=== PATIENT | female | born 1990 | race Caucasian/White ===

== ENCOUNTER 2020-10-19 15:18 | Emergency (ER) | payer OTHER ==
[~2020-10-19] VITALS: Ht 177.8 cm; Wt 65.9 kg
[2020-10-19 16:50] LABS: BASOPHILS % (AUTO) 0.6 % (0.0-2.0); EOSINOPHILS % (AUTO) 0.6 % (1.0-6.0); HEMATOCRIT 43.6 % (36-46); HEMOGLOBIN 14.8 g/dL (12.0-16.0); LYMPHOCYTES # (AUTO) 2.8 K/uL (1.0-4.8); LYMPHOCYTES % (AUTO) 29.6 % (22.0-44.0); MEAN CORPUSCULAR HGB CONC 33.9 G/dL (31.0-37.0); MEAN CORPUSCULAR VOLUME 92 fL (80-100); MONOCYTES # (AUTO) 0.6 K/uL (0.1-1.0); MONOCYTES % (AUTO) 6.7 % (2.0-9.0); NEUTROPHILS # (AUTO) 5.9 K/uL (1.8-7.7); NEUTROPHILS % (AUTO) 62.5 % (40.0-70.0); PLATELET COUNT (AUTO) 202 K/uL (150-450); RED BLOOD CELL COUNT(AUTO) 4.75 MIL/uL (4.00-5.20); RED CELL DISTRIBUTION WIDTH 13.1 % (11.5-14.5)
[2020-10-19 17:05] LABS: ANION GAP 12 mmol/L (8-16); CARBON DIOXIDE 26 mmol/L (22-29); CHLORIDE 105 mmol/L (98-107); CREATININE 0.64 mg/dL (0.60-1.30); GLOMERULAR FILTR. RATE CALC > 60 mL/min (>60); GLUCOSE,RANDOM 90 mg/dL (70-110); POTASSIUM 4.3 mmol/L (3.5-5.1); SODIUM SERUM 143 mmol/L (136-145); UREA NITROGEN, BLOOD 10 mg/dL (7-18)
[2020-10-19 17:16] LABS: ALANINE AMINOTRANSFERASE 22 U/L (12-78); ALBUMIN 4.2 g/dL (3.4-5.0); ALKALINE PHOSPHATASE 46 U/L (46-116); ASPARTATE AMINOTRANSFERASE 11 U/L (15-37); BILIRUBIN,TOTAL 0.3 mg/dL (0.1-1.0); HCG,QUANTITATIVE < 1 mIU/mL (0-6); TOTAL PROTEIN, SERUM 7.2 g/dL (6.4-8.2)
[2020-10-19 17:24] LABS: APPEARANCE,URINE CLOUDY (CLEAR); BILIRUBIN,URINE NEGATIVE (NEGATIVE); GLUCOSE, URINE (UA) NEGATIVE (NEGATIVE); KETONES,URINE NEGATIVE (NEGATIVE); LEUKOCYTE ESTERASE ,URINE NEGATIVE (NEGATIVE); NITRATE,URINE NEGATIVE (NEGATIVE); OCCULT BLOOD,URINE NEGATIVE (NEGATIVE); PH,URINE 7.5 (5.0-8.0); PROTEIN,URINE NEGATIVE (NEGATIVE); UROBILINOGEN,URINE 0.2 mg/dL (<=1.0)
[2020-10-19 18:29] LABS: BACTERIA,URINE None Seen /HPF (None Seen); RBC,URINE None Seen /HPF (0-2); WBC,URINE None Seen /HPF (0-5)
[2020-10-19 18:30] LABS: SQUAMOUS EPITHELIAL CELL,UR Few /LPF (None Seen)
[2020-10-19 19:00] VITALS: BP 126/71
== END 2020-10-19 19:00 | disposition home or self-care (01) ==
LOC: EMS 15:21
DX: G62.9 Polyneuropathy, unspecified (principal); R10.32 Left lower quadrant pain; R42 Dizziness and giddiness; F17.210 Nicotine dependence, cigarettes, uncomplicated; F12.90 Cannabis use, unspecified, uncomplicated
CPT/HCPCS: 74176; 80053; 81001; 84702; 85025; 99284

== ENCOUNTER 2021-09-11 02:17 | Emergency (ER) | payer OTHER ==
[~2021-09-11] VITALS: Ht 175.3 cm; Wt 70.5 kg
[2021-09-11 02:28] VITALS: BP 132/82
[2021-09-11 03:07] LABS: BASOPHILS % (AUTO) 0.8 % (0.0-2.0); EOSINOPHILS % (AUTO) 1.4 % (1.0-6.0); HEMATOCRIT 40.5 % (36-46); HEMOGLOBIN 13.8 g/dL (12.0-16.0); LYMPHOCYTES # (AUTO) 3.4 K/uL (1.0-4.8); MEAN CORPUSCULAR HEMOGLOBIN 30.8 pg (26.0-34.0); MEAN CORPUSCULAR VOLUME 91 fL (80-100); MONOCYTES # (AUTO) 0.7 K/uL (0.1-1.0); MONOCYTES % (AUTO) 7.1 % (2.0-9.0); NEUTROPHILS # (AUTO) 5.2 K/uL (1.8-7.7); NEUTROPHILS % (AUTO) 54.7 % (40.0-70.0); PLATELET COUNT (AUTO) 182 K/uL (150-450); RED BLOOD CELL COUNT(AUTO) 4.48 MIL/uL (4.00-5.20); RED CELL DISTRIBUTION WIDTH 13.2 % (11.5-14.5)
[2021-09-11 03:14] LABS: ANION GAP 9 mmol/L (8-16); CALCIUM, TOTAL 8.6 mg/dL (8.8-10.5); CARBON DIOXIDE 24 mmol/L (22-29); CHLORIDE 104 mmol/L (98-107); GLUCOSE,RANDOM 101 mg/dL (70-110); SODIUM SERUM 137 mmol/L (136-145); UREA NITROGEN, BLOOD 15 mg/dL (7-18)
[2021-09-11] MEDS ORDERED: ACETAMINOPHEN 500 MG TABLET PO ONE (03:15)
[2021-09-11] MEDS ORDERED: MAG HYDROX/AL HYDROX/SIMETH 30 ML SUSP UDCUP PO ONE (03:15)
[2021-09-11] MEDS ORDERED: FAMOTIDINE 20 MG TABLET PO ONE (03:15)
[2021-09-11 03:17] LABS: GLOMERULAR FILTR. RATE CALC > 60 mL/min (>60)
[2021-09-11 03:34] LABS: B-TYPE NATRIURETIC PEPTIDE 18 pg/mL (0-100)
[2021-09-11 03:35] LABS: ALANINE AMINOTRANSFERASE 19 U/L (12-78); ALBUMIN 3.8 g/dL (3.4-5.0); ALKALINE PHOSPHATASE 45 U/L (46-116); ASPARTATE AMINOTRANSFERASE 12 U/L (15-37); BILIRUBIN,TOTAL 0.5 mg/dL (0.1-1.0); CREATINE KINASE, TOTAL ONLY 47 U/L (26-192); HCG,QUANTITATIVE < 1 mIU/mL (0-6); TOTAL PROTEIN, SERUM 6.8 g/dL (6.4-8.2)
== END 2021-09-11 05:49 | disposition home or self-care (01) ==
LOC: EMS 02:18
DX: R07.89 Other chest pain (principal); F12.90 Cannabis use, unspecified, uncomplicated; F17.210 Nicotine dependence, cigarettes, uncomplicated
CPT/HCPCS: 71045; 80053; 82550; 83880; 84484; 84702; 85025; 93005; 99285; 36415-L1; 36415-TC

== ENCOUNTER 2022-11-16 19:52 | Emergency (ER) | payer OTHER ==
[~2022-11-16] VITALS: Ht 175.3 cm; Wt 70.5 kg
[2022-11-16 20:23] VITALS: BP 128/70; PULSE 65; RESP 12; TEMP 98.7
[2022-11-16 21:32] LABS: APPEARANCE,URINE CLEAR (CLEAR); BILIRUBIN,URINE NEGATIVE (NEGATIVE); COLOR,URINE LIGHT YELLOW (YELLOW); GLUCOSE, URINE (UA) NEGATIVE (NEGATIVE); KETONES,URINE NEGATIVE (NEGATIVE); LEUKOCYTE ESTERASE ,URINE NEGATIVE (NEGATIVE); NITRATE,URINE NEGATIVE (NEGATIVE); OCCULT BLOOD,URINE NEGATIVE (NEGATIVE); PH,URINE 5.5 (5.0-8.0); PROTEIN,URINE NEGATIVE (NEGATIVE); SPECIFIC GRAVITIY, URINE 1.012 (1.003-1.030); UROBILINOGEN,URINE <=1.0 mg/dL (<=1.0)
[2022-11-16 21:37] LABS: BASOPHILS % (AUTO) 0.7 % (0.0-2.0); EOSINOPHILS % (AUTO) 1.7 % (1.0-6.0); HEMATOCRIT 41.3 % (36-46); LYMPHOCYTES # (AUTO) 2.5 K/uL (1.0-4.8); LYMPHOCYTES % (AUTO) 31.1 % (22.0-44.0); MEAN CORPUSCULAR HEMOGLOBIN 31.5 pg (26.0-34.0); MEAN CORPUSCULAR VOLUME 93 fL (80-100); MONOCYTES # (AUTO) 0.5 K/uL (0.1-1.0); MONOCYTES % (AUTO) 6.9 % (2.0-9.0); NEUTROPHILS # (AUTO) 4.7 K/uL (1.8-7.7); NEUTROPHILS % (AUTO) 59.6 % (40.0-70.0); PLATELET COUNT (AUTO) 191 K/uL (150-450); RED BLOOD CELL COUNT(AUTO) 4.46 MIL/uL (4.00-5.20); RED CELL DISTRIBUTION WIDTH 13.3 % (11.5-14.5); WHITE BLOOD COUNT (AUTO) 7.9 K/uL (4.5-11.0)
[2022-11-16 21:39] LABS: BACTERIA,URINE None Seen /HPF (None Seen); RBC,URINE 0-2 /HPF (0-2); SQUAMOUS EPITHELIAL CELL,UR Few /LPF (None Seen); WBC,URINE 0-2 /HPF (0-5)
[2022-11-16 21:46] LABS: ANION GAP 9 mmol/L (8-16); CALCIUM, TOTAL 8.7 mg/dL (8.8-10.5); CARBON DIOXIDE 24 mmol/L (22-29); CHLORIDE 103 mmol/L (98-107); CREATININE 0.65 mg/dL (0.60-1.30); GLOMERULAR FILTR. RATE CALC > 60 mL/min (>60); GLUCOSE,RANDOM 101 mg/dL (70-110); POTASSIUM 3.5 mmol/L (3.5-5.1); SODIUM SERUM 136 mmol/L (136-145); UREA NITROGEN, BLOOD 10 mg/dL (7-18)
[2022-11-16 21:52] LABS: ALANINE AMINOTRANSFERASE 8 U/L (12-78); ALBUMIN 3.7 g/dL (3.4-5.0); ALKALINE PHOSPHATASE 54 U/L (46-116); ASPARTATE AMINOTRANSFERASE 11 U/L (15-37); BILIRUBIN,TOTAL 0.3 mg/dL (0.1-1.0); LIPASE 39 U/L (16-77); TOTAL PROTEIN, SERUM 6.8 g/dL (6.4-8.2)
[2022-11-16] MEDS ORDERED: SULF-261 PO (23:17)
== END 2022-11-16 23:25 | disposition home or self-care (01) ==
LOC: EMS 19:53
DX: R30.0 Dysuria (principal); G40.909 Epilepsy, unspecified, not intractable, without status epilepticus; F17.210 Nicotine dependence, cigarettes, uncomplicated; F12.90 Cannabis use, unspecified, uncomplicated; Z98.890 Other specified postprocedural states; Z90.89 Acquired absence of other organs
CPT/HCPCS: 80053; 81001; 83690; 84703; 85025; 99283

== ENCOUNTER 2023-03-12 18:45 | Emergency (ER) | payer OTHER ==
[~2023-03-12] VITALS: Ht 175.3 cm; Wt 72.7 kg
[~2023-03-12 18:45] MED LIST: SULF-261 PO
[2023-03-12 18:48] VITALS: BP 129/74; PULSE 71; RESP 16; TEMP 98.3
[2023-03-12] MEDS ORDERED: PROPARACAINE HCL 0.5% 15 ML OPHTHALMIC SOLUTION OU ONE (22:00)
[2023-03-12] MEDS ORDERED: FLUORESCEIN SODIUM 1 MG STRIP OU ONE (22:00)
== END 2023-03-12 23:06 | disposition home or self-care (01) ==
LOC: EMS 18:45
DX: R25.3 Fasciculation (principal); F17.210 Nicotine dependence, cigarettes, uncomplicated; F12.90 Cannabis use, unspecified, uncomplicated; Z98.890 Other specified postprocedural states
CPT/HCPCS: 99283

== ENCOUNTER 2023-12-09 17:44 | Emergency (ER) | payer OTHER ==
[~2023-12-09] VITALS: Ht 177.8 cm; Wt 68.2 kg
[2023-12-09 17:51] VITALS: TEMP 99.2
[2023-12-09 18:52] LABS: EOSINOPHILS % (AUTO) 0.8 % (1.0-6.0); HEMATOCRIT 44.9 % (36-46); HEMOGLOBIN 14.9 g/dL (12.0-16.0); LYMPHOCYTES % (AUTO) 31.7 % (22.0-44.0); MEAN CORPUSCULAR HEMOGLOBIN 30.9 pg (26.0-34.0); MEAN CORPUSCULAR HGB CONC 33.3 G/dL (31.0-37.0); MEAN CORPUSCULAR VOLUME 93 fL (80-100); MONOCYTES # (AUTO) 0.5 K/uL (0.1-1.0); MONOCYTES % (AUTO) 5.1 % (2.0-9.0); NEUTROPHILS # (AUTO) 5.7 K/uL (1.8-7.7); NEUTROPHILS % (AUTO) 61.4 % (40.0-70.0); PLATELET COUNT (AUTO) 203 K/uL (150-450); RED BLOOD CELL COUNT(AUTO) 4.83 MIL/uL (4.00-5.20); RED CELL DISTRIBUTION WIDTH 13.4 % (11.5-14.5); WHITE BLOOD COUNT (AUTO) 9.3 K/uL (4.5-11.0)
[2023-12-09 19:05] LABS: ANION GAP 9 mmol/L (8-16); CALCIUM, TOTAL 9.1 mg/dL (8.8-10.5); CARBON DIOXIDE 26 mmol/L (22-29); CHLORIDE 103 mmol/L (98-107); CREATININE 0.71 mg/dL (0.60-1.30); GLOMERULAR FILTR. RATE CALC > 60 mL/min (>60); GLUCOSE,RANDOM 80 mg/dL (70-110); POTASSIUM 3.8 mmol/L (3.5-5.1); SODIUM SERUM 138 mmol/L (136-145); UREA NITROGEN, BLOOD 9 mg/dL (7-18)
[2023-12-09 19:10] LABS: COVID AG,FIA SOURCE NASAL SWAB
[2023-12-09 19:10] LABS: ALANINE AMINOTRANSFERASE 16 U/L (12-78); ALKALINE PHOSPHATASE 47 U/L (46-116); ASPARTATE AMINOTRANSFERASE 13 U/L (15-37); BILIRUBIN,TOTAL 0.6 mg/dL (0.1-1.0); TOTAL PROTEIN, SERUM 7.3 g/dL (6.4-8.2)
[2023-12-09 19:30] LABS: RAPID GROUP A STREP NEGATIVE (NEGATIVE)
[2023-12-09 19:35] LABS: SARS-COV2 (COVID) ANTIGEN,FIA Negative (Negative)
[2023-12-09 19:37] LABS: INFLUENZA TYPE A NEGATIVE FOR TYPE A (NEGATIVE); INFLUENZA TYPE B NEGATIVE FOR TYPE B (NEGATIVE)
[2023-12-09 20:48] VITALS: BP 131/76; PULSE 81; RESP 18; O2SAT 97
== END 2023-12-09 21:07 | disposition home or self-care (01) ==
LOC: EMS 17:51
DX: J02.9 Acute pharyngitis, unspecified (principal); F12.90 Cannabis use, unspecified, uncomplicated; F17.210 Nicotine dependence, cigarettes, uncomplicated; Z90.89 Acquired absence of other organs; Z98.890 Other specified postprocedural states; Z87.19 Personal history of other diseases of the digestive system; Z20.822 Contact with and (suspected) exposure to COVID-19
CPT/HCPCS: 70490; 80053; 84703; 85025; 87430; 87804; 99284